=== PATIENT | female | born 2000 | race Caucasian/White ===

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

== ENCOUNTER 2020-04-20 22:50 | Emergency (ER) | payer MEDICAID ==
[~2020-04-20] VITALS: Ht 160 cm; Wt 51.0 kg
[~2020-04-20 22:50] MED LIST changes: +LEVO1.5T8 PO; -PREN1TAB80 PO
[2020-04-21] MEDS ORDERED: ACETAMINOPHEN 500 MG TABLET PO ONE (01:15)
[2020-04-21] MEDS ORDERED: KETOROLAC TROMETHAMINE 30 MG/ML VIAL IM ONE (04:00)
[2020-04-21 04:34] VITALS: BP 96/41
== END 2020-04-21 04:34 | disposition home or self-care (01) ==
LOC: EMS 22:50
DX: S06.0X9A Concussion with loss of consciousness of unspecified duration, initial encounter (principal); W18.2XXA Fall in (into) shower or empty bathtub, initial encounter; Y93.89 Activity, other specified; Y92.89 Other specified places as the place of occurrence of the external cause; Y99.8 Other external cause status
CPT/HCPCS: 70450; 72125; 81025; 96372; 99285; J1885

== ENCOUNTER 2022-04-06 11:49 | Emergency (ER) | payer MEDICAID ==
[~2022-04-06] VITALS: Ht 160 cm; Wt 54.5 kg
[~2022-04-06 11:49] MED LIST changes: +LEVO1.5T38 PO; -LEVO1.5T8 PO
[2022-04-06] MEDS ORDERED: ACETAMINOPHEN 500 MG TABLET PO ONE (13:15)
[2022-04-06] MEDS ORDERED: BACLOFEN 10 MG TABLET PO ONE (13:15)
[2022-04-06] MEDS ORDERED: KETOROLAC TROMETHAMINE 60 MG/2 ML VIAL IM ONE (13:15)
[2022-04-06] MEDS ORDERED: BACL10TA PO (14:06)
[2022-04-06] MEDS ORDERED: ACET-66 PO (14:06)
[2022-04-06] MEDS ORDERED: IBUP-1554 PO (14:06)
[2022-04-06 14:15] VITALS: BP 102/55
== END 2022-04-06 14:29 | disposition home or self-care (01) ==
LOC: EMS 11:57
DX: S13.4XXA Sprain of ligaments of cervical spine, initial encounter (principal); V49.9XXA Car occupant (driver) (passenger) injured in unspecified traffic accident, initial encounter; Y93.89 Activity, other specified; Y92.89 Other specified places as the place of occurrence of the external cause; Y99.8 Other external cause status
CPT/HCPCS: 99283; 96372; J1885

== ENCOUNTER 2022-07-09 11:01 | Emergency (ER) | payer MEDICAID ==
[~2022-07-09] VITALS: Ht 160 cm; Wt 59.1 kg
[~2022-07-09 11:01] MED LIST changes: +ACET-66 PO; +BACL10TA PO; +IBUP-1554 PO; -LEVO1.5T38 PO
[2022-07-09] MEDS ORDERED: SODIUM CHLORIDE 0.9% 1,000 ML IV ONE (12:30)
[2022-07-09] MEDS ORDERED: KETOROLAC TROMETHAMINE 30 MG/ML VIAL IVP ONE (12:30)
[2022-07-09] MEDS ORDERED: ACETAMINOPHEN 500 MG TABLET PO ONE (12:30)
[2022-07-09] MEDS ORDERED: METOCLOPRAMIDE HCL 5 MG/ML 2 ML VIAL IVP ONE (12:30)
[2022-07-09 13:33] VITALS: BP 110/63
== END 2022-07-09 13:56 | disposition home or self-care (01) ==
LOC: EMS 11:05
DX: R51.9 Headache, unspecified (principal); M54.9 Dorsalgia, unspecified
CPT/HCPCS: 99285; 96374; 96361; 96375; J1885; J2765; J7030

== ENCOUNTER 2022-08-11 08:23 | Emergency (ER) | payer MEDICAID ==
[~2022-08-11] VITALS: Ht 160 cm; Wt 58.6 kg
[2022-08-11 08:25] VITALS: BP 101/59
== END 2022-08-11 10:30 | disposition left against medical advice (07) ==
LOC: EMS 08:26
DX: G89.29 Other chronic pain (principal); M54.50 Low back pain, unspecified; Z53.21 Procedure and treatment not carried out due to patient leaving prior to being seen by health care provider
CPT/HCPCS: 99281; Z7502

== ENCOUNTER 2023-10-03 13:03 | Emergency (ER) | payer MEDICAID ==
[~2023-10-03] VITALS: Ht 160 cm; Wt 59.1 kg
[2023-10-03 13:51] LABS: BASOPHILS % (AUTO) 0.4 % (0.0-2.0); EOSINOPHILS % (AUTO) 0.5 % (1.0-6.0); HEMATOCRIT 24.7 % (36-46); HEMOGLOBIN 7.4 g/dL (12.0-16.0); LYMPHOCYTES # (AUTO) 1.6 K/uL (1.0-4.8); LYMPHOCYTES % (AUTO) 14.8 % (22.0-44.0); MEAN CORPUSCULAR HEMOGLOBIN 20.4 pg (26.0-34.0); MEAN CORPUSCULAR HGB CONC 29.9 G/dL (31.0-37.0); MEAN CORPUSCULAR VOLUME 68 fL (80-100); MONOCYTES # (AUTO) 0.6 K/uL (0.1-1.0); MONOCYTES % (AUTO) 5.7 % (2.0-9.0); NEUTROPHILS # (AUTO) 8.4 K/uL (1.8-7.7); NEUTROPHILS % (AUTO) 78.6 % (40.0-70.0); PLATELET COUNT (AUTO) 209 K/uL (150-450); RED BLOOD CELL COUNT(AUTO) 3.62 MIL/uL (4.00-5.20); WHITE BLOOD COUNT (AUTO) 10.7 K/uL (4.5-11.0)
[2023-10-03 14:03] LABS: ANION GAP 9 mmol/L (8-16); CALCIUM, TOTAL 8.3 mg/dL (8.8-10.5); CARBON DIOXIDE 25 mmol/L (22-29); CHLORIDE 103 mmol/L (98-107); CREATININE 0.51 mg/dL (0.60-1.30); GLOMERULAR FILTR. RATE CALC > 60 mL/min (>60); GLUCOSE,RANDOM 89 mg/dL (70-110); POTASSIUM 3.9 mmol/L (3.5-5.1); SODIUM SERUM 137 mmol/L (136-145); UREA NITROGEN, BLOOD 7 mg/dL (7-18)
[2023-10-03 14:05] LABS: PROTHROMBIN TIME 10.3 SEC (9.4-11.6)
[2023-10-03 14:35] LABS: ALANINE AMINOTRANSFERASE 11 U/L (12-78); ALBUMIN 2.8 g/dL (3.4-5.0); ALKALINE PHOSPHATASE 112 U/L (46-116); ASPARTATE AMINOTRANSFERASE 20 U/L (15-37); BILIRUBIN,TOTAL 0.6 mg/dL (0.1-1.0); HCG,QUANTITATIVE 15604 mIU/mL (0-6); TOTAL PROTEIN, SERUM 7.6 g/dL (6.4-8.2)
[2023-10-03 16:00] VITALS: BP 104/65; PULSE 94; RESP 16; TEMP 98.2
[2023-10-03 16:15] VITALS: BP 111/58; PULSE 61; RESP 16; TEMP 98.2
[2023-10-03 16:30] VITALS: BP 103/64; PULSE 80; RESP 16; TEMP 98.3
[2023-10-03 16:45] VITALS: BP 102/63; PULSE 63; RESP 16; TEMP 98.2
[2023-10-03 17:00] VITALS: BP 97/58; PULSE 63; RESP 15; TEMP 98.2
[2023-10-03 18:00] VITALS: BP 110/70; PULSE 80; RESP 14
== END 2023-10-03 18:32 | disposition home or self-care (01) ==
LOC: EMS 13:43
DX: O99.013 Anemia complicating pregnancy, third trimester (principal); Z3A.28 28 weeks gestation of pregnancy; Z98.890 Other specified postprocedural states
CPT/HCPCS: 99285; 36430; 76805; 80053; 84702; 85025; 85610; 85730; 86850; 86900; 86901; 86923; 36415; P9016

== ENCOUNTER 2025-03-11 09:35 | Emergency (ER) | payer MEDICAID ==
[~2025-03-11] VITALS: Ht 160 cm; Wt 61.0 kg
[2025-03-11 09:56] VITALS: TEMP 98.8
[2025-03-11 10:00] VITALS: BP 107/75; PULSE 87; RESP 16; O2SAT 99
[2025-03-11] MEDS ORDERED: CEPH-558 PO (11:11)
== END 2025-03-11 11:44 | disposition home or self-care (01) ==
LOC: EMS 09:37
DX: L03.113 Cellulitis of right upper limb (principal)
CPT/HCPCS: 99283; Z7502